=== PATIENT | male | born 1980 | race Caucasian/White ===

== ENCOUNTER 2019-07-27 15:10 | Emergency (ER) | payer SELFPAY ==
[~2019-07-27] VITALS: Ht 165.1 cm; Wt 77.6 kg
[2019-07-27 15:24] VITALS: BP 130/74; Ht 165.1 cm; Wt 77.6 kg
== END 2019-07-27 16:04 | disposition home or self-care (01) ==
LOC: ED 15:10
DX: B34.9 Viral infection, unspecified (principal)